=== PATIENT | female | born 1990 | race Caucasian/White ===

== ENCOUNTER 2018-11-06 14:26 | Emergency (ER) | payer OTHER ==
[~2018-11-06] VITALS: Ht 170.2 cm; Wt 78.0 kg
[2018-11-06 14:26] VITALS: BP 133/76
[2018-11-06] MEDS ORDERED: FLUORESCEIN SODIUM OPHTH 1 EA STRIP OP ONE (15:30)
[2018-11-06] MEDS ORDERED: TETRACAINE HCL 0.5% OPHTALMIC 15 ML BOTTLE OP ONE (15:30)
[2018-11-06] MEDS ORDERED: FLUORESCEIN SODIUM OPHTH 1 EA STRIP ONE (15:33)
[2018-11-06] MEDS ORDERED: TETRACAINE HCL/PF 0.5% UD 2 ML BOTTLE ONE (15:33)
== END 2018-11-06 16:00 | disposition home or self-care (01) ==
LOC: ER 14:34
DX: H57.89 Other specified disorders of eye and adnexa (principal); Z98.890 Other specified postprocedural states
CPT/HCPCS: 99282; A4606